=== PATIENT | female | born 1960 | race American Indian/Alaskan Native ===

== ENCOUNTER 2019-04-04 12:58 | Outpatient (CLI) | payer OTHER ==
[2019-04-04 13:45] LABS: Creatinine,Urine 30.3 mg/dL (0.1-20.0)
[2019-04-04 13:52] LABS: Alanine Aminotransferase 22 units/L (7-56); Albumin 4.6 g/dL (3.9-5); BUN/Creatinine Ratio 21; Blood Urea Nitrogen 15 mg/dL (7-17); Calcium 9.6 mg/dL (8.4-10.2); Hemolysis Index 0
[2019-04-04 13:53] LABS: Microalbumin/Creatinine Ratio 39.6 ug/mg
[2019-04-04 14:03] LABS: Hepatitis B Surface Antigen Non-Reactive (Negative); Hepatitis C Virus Antibody Non-Reactive (NonReactive)
[2019-04-07 05:37] LABS: Albumin 4.6 g/dL (3.8-4.8); Gamma Globulin 1.6 g/dL (0.8-1.7)
== END 2019-04-04 12:59 | disposition home or self-care (01) ==
LOC: LAB 12:58
PROVIDERS: ATTEND Internal Medicine Nephrology
DX: E11.9 Type 2 diabetes mellitus without complications (principal); R80.0 Isolated proteinuria; I42.9 Cardiomyopathy, unspecified; I80.2 Phlebitis and thrombophlebitis of other and unspecified deep vessels of lower extremities
CPT/HCPCS: 36415; 80053; 80074; 82043; 84165